=== PATIENT | male | born 1965 | race African-American/Black ===

== ENCOUNTER 2022-07-25 07:56 | Day surgery (SDC) | payer OTHER ==
[2022-07-22 15:39] VITALS: BMI 33.2
[2022-07-25 08:32] VITALS: RESP 18
[2022-07-25 09:48] VITALS: TEMP 98
[2022-07-25 09:51] VITALS: BP 128/74; PULSE 77
== END 2022-07-25 10:29 | disposition home or self-care (01) ==
LOC: FASU-ENDO 07:56
PROVIDERS: ATTEND Student in an Organized Health Care Education/Training Program
PROC: 0DBL8ZX Excision of Transverse Colon, Via Natural or Artificial Opening Endoscopic, Diagnostic (ICD-10-PCS; 2022-07-25)
PROC: 0DBM8ZX Excision of Descending Colon, Via Natural or Artificial Opening Endoscopic, Diagnostic (ICD-10-PCS; principal; 2022-07-25 08:57)
DX: Z12.11 Encounter for screening for malignant neoplasm of colon (principal)
CPT/HCPCS: 88305-TC